=== PATIENT | male | born 1975 | race African-American/Black ===

== ENCOUNTER 2024-02-10 19:47 | Inpatient (IN) | payer OTHER ==
[2024-02-10] MEDS ORDERED: BENZONATATE 200 MG CAPSULE PO PRN (22:43)
[2024-02-10] MEDS ORDERED: NICOTINE POLACRILEX 4 MG GUM BUC PRN (22:43)
[2024-02-10] MEDS ORDERED: hydrOXYzine PAMOATE 25 MG CAPSULE (FP) PO PRN (22:43)
[2024-02-10] MEDS ORDERED: DICYCLOMINE HCL 10 MG CAPSULE PO PRN (22:43)
[2024-02-10] MEDS ORDERED: POLYETHYLENE GLYCOL (HEALTHYLAX) 3350 17 GM PACKET PO PRN (22:43)
[2024-02-10] MEDS ORDERED: IBUPROFEN 400 MG TABLET (FP) PO PRN (22:43)
[2024-02-10] MEDS ORDERED: BENZOCAINE/MENTHOL (CHLORASEPTIC ) LOZENGE MM PRN (22:43)
[2024-02-10] MEDS ORDERED: guaiFENesin 600 MG TABLET.ER (FP) PO PRN (22:43)
[2024-02-10] MEDS ORDERED: BISMUTH SUBSALICYLATE 524 MG/30 ML PO PRN (22:43)
[2024-02-10] MEDS ORDERED: NALOXONE (NARCAN) HCL 4 MG/0.1 ML SPRAY NS PRN (22:43)
[2024-02-10] MEDS ORDERED: LOPERAMIDE HCL 2 MG CAPSULE PO PRN (22:43)
[2024-02-10] MEDS ORDERED: ACETAMINOPHEN 325 MG TABLET (FP) PO PRN (22:43)
[2024-02-10] MEDS ORDERED: IBUPROFEN 600 MG TABLET (FP) PO PRN (22:43)
[2024-02-10] MEDS ORDERED: MAG HYDROX/AL HYDROX/SIMETH 30 ML UNIT-DOSE CUP PO PRN (22:43)
[2024-02-10] MEDS ORDERED: MAGNESIUM HYDROX 2400MG/30ML ORAL SUSPENSION 30 ML CUP PO PRN (22:43)
[2024-02-11] MEDS ORDERED: ONDANSETRON *ODT* 4 MG TABLET ONE (06:33)
[2024-02-11] MEDS: ONDANSETRON *ODT* 4 MG TABLET SL PRN (06:34)
[2024-02-11 08:41] VITALS: BMI 28.8
[2024-02-11] MEDS ORDERED: LORazepam 1 MG TABLET PO PRN (09:27)
[2024-02-11] MEDS ORDERED: ASPIRIN COATED 81 MG TABLET.EC PO SCH (10:00)
[2024-02-11] MEDS ORDERED: FAMOTIDINE 20 MG TABLET PO SCH (10:00)
[2024-02-11] MEDS ORDERED: amLODIPine BESYLATE 5 MG TABLET (FP) PO SCH (10:00)
[2024-02-11] MEDS: NICOTINE 14 MG/24 HOURS TOPICAL PATCH TD SCH (10:04)
[2024-02-11] MEDS ORDERED: LORazepam 2 MG TABLET ONE (10:07)
[2024-02-11] MEDS ORDERED: amLODIPine BESYLATE 5 MG TABLET (FP) ONE (10:07)
[2024-02-11] MEDS ORDERED: PRENATAL VITAMINS W/ FOLIC ACID TABLET (FP) PO ONE (10:08)
[2024-02-11] MEDS ORDERED: ASPIRIN 81 MG CHEWABLE TABLETS ONE (10:08)
[2024-02-11] MEDS: LORazepam 2 MG TABLET PO ONE (10:09)
[2024-02-11] MEDS: PRENATAL VITAMINS W/ FOLIC ACID TABLET (FP) PO SCH (10:09)
[2024-02-11] MEDS: amLODIPine BESYLATE 5 MG TABLET (FP) PO SCH (10:10)
[2024-02-11] MEDS: ASPIRIN 81 MG CHEWABLE TABLETS PO SCH (10:10)
[2024-02-11] MEDS: LORazepam 2 MG TABLET PO SCH (10:16)
[2024-02-11] MEDS: FAMOTIDINE 20 MG TABLET PO SCH (10:49)
[2024-02-11 14:46] LABS: HEMATOCRIT 39.5 % (35.4-49); MCH 30.2 pg (25.7-33.7); MCHC 32.9 g/dl (32.0-35.9); MEAN CELL VOLUME 91.8 fl (80-96); MEAN PLT VOLUME 8.7 fl (7.5-11.1); PLATELET COUNT 208 10^3/uL (134-434); RDW 13.7 % (11.9-15.9); WHITE BLOOD COUNT 5.2 K/mm3 (4.0-10.0)
[2024-02-11 15:01] LABS: CHLORIDE 107 mmol/L (98-107); POTASSIUM 3.6 mmol/L (3.5-5.1); SODIUM 137 mmol/L (136-145)
[2024-02-11 15:12] LABS: ALBUMIN 3.4 g/dl (3.4-5.0)
[2024-02-11 15:13] LABS: ANION GAP 6 mmol/L (4-13); CO2 24 mmol/L (21-32)
[2024-02-11 15:15] LABS: CALCIUM 8.6 mg/dL (8.5-10.1)
[2024-02-11 15:17] LABS: BLOOD UREA NITROGEN 9.2 mg/dL (7-18); GLUCOSE,RANDOM 194 mg/dL (74-106)
[2024-02-11 15:19] LABS: BILIRUBIN,TOTAL 0.6 mg/dL (0.2-1); SGPT/ALT 22 U/L (13-61)
[2024-02-11 15:20] LABS: ALK PHOS 88 U/L (45-117); CREATININE 0.9 mg/dL (0.55-1.3)
[2024-02-11 15:21] LABS: TOT PROT 6.3 g/dl (6.4-8.2)
[2024-02-11 15:45] LABS: SGOT/AST 18 U/L (15-37)
[2024-02-11] MEDS: MELATONIN 5 MG TABLETS PO SCH (22:12)
[2024-02-11] MEDS: THIAMINE 100 MG TABLET PO SCH (22:13)
[2024-02-12] MEDS: METHOCARBAMOL 500 MG TABLET PO PRN (10:09)
[2024-02-12] MEDS: risperiDONE 1 MG TABLET PO SCH (22:34)
[2024-02-12] MEDS: MIRTAZAPINE 15 MG TABLET (FP) PO SCH (23:31)
[2024-02-13] MEDS: LORazepam 1 MG TABLET PO SCH (05:50)
[2024-02-14] MEDS ORDERED: LORazepam 0.5 MG TABLET PO PRN
[2024-02-14] MEDS: LORazepam 0.5 MG TABLET PO SCH (06:00)
[2024-02-15] MEDS: LORazepam 0.5 MG TABLET PO ONE (05:59)
[2024-02-16 08:58] VITALS: BP 145/86; PULSE 88; RESP 18; TEMP 97.7
[2024-02-16] MEDS: NALOXONE (NYS OPIOID OVERDOSE PROGRAM) 4 MG/0.1 ML SPRAY NS PRN (09:45)
== END 2024-02-16 10:00 | disposition home or self-care (01) | DRG 774 ==
LOC: YASAS 19:47 → Y6N 02-11 12:38
PROVIDERS: ADMIT Allergy & Immunology; ATTEND Surgery
PROC: HZ2ZZZZ Detoxification Services for Substance Abuse Treatment (ICD-10-PCS; principal; 2024-02-11)
DX: F10.230 Alcohol dependence with withdrawal, uncomplicated (principal); F14.20 Cocaine dependence, uncomplicated; F17.210 Nicotine dependence, cigarettes, uncomplicated; F25.1 Schizoaffective disorder, depressive type; F19.282 Other psychoactive substance dependence with psychoactive substance-induced sleep disorder; F19.280 Other psychoactive substance dependence with psychoactive substance-induced anxiety disorder; F19.24 Other psychoactive substance dependence with psychoactive substance-induced mood disorder; F43.10 Post-traumatic stress disorder, unspecified; F41.9 Anxiety disorder, unspecified; I10 Essential (primary) hypertension; K21.9 Gastro-esophageal reflux disease without esophagitis
CPT/HCPCS: 36415; 80053; 80305; 80307; 85027; 86780; 93005; 93010; Q0162